=== PATIENT | female | born 1995 | race Two or more races ===

== ENCOUNTER 2020-10-19 23:06 | Emergency (ER) | payer MEDICAID ==
[2020-10-20] MEDS ORDERED: ACETAMINOPHEN 325 MG TABLET PO ONE (00:36)
--- NOTE | 2020-10-20 00:39 | ER Document Report ---
ED Medical Screen (RME) - General Chief Complaint: Abdominal Pain Stated Complaint: C SECTION POST OP COMPLICATIONS Time Seen by Provider: 10/20/20 00:31 Primary Care Provider: CHRISTA LEE MD [Primary Care Provider] - Follow up as needed Mode of Arrival: Ambulatory Information source: Patient Notes: HPI; 25-year-old female presents to the emergency room complaining of persistent pain to her scar from November 06, 2019. Patient states the pain is intermittent but has gotten progressively worse over the past week. States she squatted down to urinate when she felt a sharp pulling sensation to her lower abdomen. Denies nausea, vomiting, no fevers, no urinary symptoms. Been taking ibuprofen and Tylenol with minimal relief. States tonight she did notice some bruising to the area. PE: Alert and oriented x3. Lungs: Clear to auscultation without rales, rhonchi, wheezes. Heart: Regular rate rhythm without murmurs, rubs, gallops. Unable to do full abdominal exam in triage. I have greeted and performed a rapid initial assessment of this patient. A comprehensive ED assessment and evaluation of the patient, analysis of test results and completion of the medical decision making process will be conducted by additional ED providers. I have specifically instructed the patient or family members with the patient to immediately return to any nursing staff should anything change in the patient's condition or with their chief complaint. TRAVEL OUTSIDE OF THE [place] IN LAST 30 DAYS: No - Related Data Allergies/Adverse Reactions: Penicillins Allergy (Verified 10/20/20 00:36) Physical Exam - Vital signs Vitals: Temp Pulse Resp BP Pulse Ox 98.0 F 72 17 145/78 H 100 10/19/20 23:10 10/19/20 23:10 10/19/20 23:10 10/19/20 23:10 10/19/20 23:10 Course - Vital Signs Vital signs: Temp Pulse Resp BP Pulse Ox 98.0 F 72 17 145/78 H 100 10/19/20 23:10 10/19/20 23:10 10/19/20 23:10 10/19/20 23:10 10/19/20 23:10 Doctor's Discharge - Discharge Referrals: CHRISTA LEE MD [Primary Care Provider] - Follow up as needed
[2020-10-20 01:10] LABS: ABSOLUTE EOSINOPHILS # (AUTO) 0.2 10^3/uL (0.0-0.6); ABSOLUTE LYMPHOCYTES (AUTO) 2.8 10^3/uL (0.5-4.7); ABSOLUTE MONOCYTES (AUTO) 0.5 10^3/uL (0.1-1.4); ABSOLUTE NEUT (AUTO) 6.6 10^3/uL (1.7-8.2); BASOPHILS % (AUTO) 0.3 % (0-2); EOSINOPHILS % (AUTO) 1.7 % (0-6); HEMATOCRIT 34.3 % (36.0-47.0); HEMOGLOBIN 11.7 g/dL (12.0-15.5); LYMPHOCYTES % (AUTO) 27.5 % (13-45); MEAN CORPUSCULAR HEMOGLOBIN 29.2 pg (27.0-33.4); MEAN CORPUSCULAR HGB CONC 34.2 g/dL (32.0-36.0); MEAN CORPUSCULAR VOLUME 85 fl (80-97); MONOCYTES % (AUTO) 5.3 % (3-13); PLATELET COUNT 281 10^3/uL (150-450); RED BLOOD COUNT 4.02 10^6/uL (3.72-5.28); RED CELL DISTRIBUTION WIDTH 15.7 % (11.5-14.0); SEGMENTED NEUTROPHILS % (AUTO) 65.2 % (42-78); TOTAL CELLS COUNTED % (AUTO) 100 %; WHITE BLOOD COUNT 10.1 10^3/uL (4.0-10.5)
[2020-10-20 01:24] LABS: ALBUMIN 3.9 g/dL (3.5-5.0); ALKALINE PHOSPHATASE 79 U/L (38-126); ASPARTATE AMINO TRANSFERASE 22 U/L (14-36); BILIRUBIN,TOTAL 0.4 mg/dL (0.2-1.3); BLOOD UREA NITROGEN 12 mg/dL (7-20); GLUCOSE 90 mg/dL (75-110); POTASSIUM 4.1 mmol/L (3.6-5.0); TOTAL PROTEIN 6.9 g/dL (6.3-8.2)
[2020-10-20 01:29] LABS: CARBON DIOXIDE 29 mmol/L (22-30); CHLORIDE 105 mmol/L (98-107)
[2020-10-20 01:30] LABS: ANION GAP 4 (5-19)
[2020-10-20 04:37] LABS: APPEARANCE,URINE SLIGHTLY-CLOUDY; BILIRUBIN,URINE NEGATIVE (NEGATIVE); COLOR,URINE YELLOW; GLUCOSE, URINE NEGATIVE (NEGATIVE); KETONES,URINE NEGATIVE (NEGATIVE); LEUKOCYTE ESTERASE,URINE NEGATIVE (NEGATIVE); NITRITE,URINE NEGATIVE (NEGATIVE); PROTEIN,URINE 30 mg/dL (NEGATIVE); URINE SPECIFIC GRAVITY 1.039
[2020-10-20] MEDS ORDERED: HYDROCODONE/ACETAMINOPHEN 5-325 MG TABLET PO ONE (06:27)
[2020-10-20] MEDS ORDERED: ONDANSETRON 4 MG TAB.RAPDIS PO ONE (06:27)
--- NOTE | 2020-10-20 07:07 | RADIOLOGY REPORT (SQ) ---
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 COMPARISON: None available TECHNIQUE: Axial contiguous images were obtained from the lung bases to the proximal femurs with intravenous intravenous contrast administered. Sagittal and coronal reconstructions were also obtained and reviewed. This exam was performed according to our departmental dose-optimization program, which includes automated exposure control, adjustment of the mA and/or KV according to the patient's size and/or use of iterative reconstruction technique. FINDINGS: No focal consolidative airspace opacities are seen. No discrete pleural effusions are seen. The visualized hepatic parenchyma demonstrates no focal abnormality. The gallbladder demonstrates no evidence of calcified gallstones. The spleen is normal in size. The pancreas is unremarkable. The bilateral adrenal glands are unremarkable. Both kidneys demonstrate no evidence of hydronephrosis. No renal or ureteral calculi are seen. The urinary bladder is mildly distended. The uterus is present. There is a right adnexal hypodensity measuring at least 6.4 x 4.7 cm. This may represent a large physiologic cyst or hemorrhagic cyst, less likely infection. This could also less likely represent a hydrosalpinx. The stomach is mildly distended. The small bowel loops appear unremarkable. An anterior umbilical hernia containing omental fat is seen. No pericolonic inflammatory stranding is seen. The appendix is unremarkable. There is no evidence of pneumoperitoneum or free fluid. The IVC is unremarkable. The visualized portions of the abdominal aorta are within normal limits of size. No significantly enlarged lymph nodes are seen in the abdomen or pelvis. Review of the bone show no evidence of any suspicious lytic or blastic lesions. IMPRESSION: There is a right adnexal hypodensity measuring at least 6.4 x 4.7 cm. This may represent a large physiologic cyst or hemorrhagic cyst, less likely infection. This could also less likely represent a hydrosalpinx. This could be better evaluated with ultrasound imaging.
--- NOTE | 2020-10-20 07:10 | ER Document Report ---
ED General - General Chief Complaint: Abdominal Pain Stated Complaint: C SECTION POST OP COMPLICATIONS Time Seen by Provider: 10/20/20 00:31 Primary Care Provider: CHRISTA LEE MD [COMMUNITY BASED STAFF] - Follow up as needed Mode of Arrival: Ambulatory TRAVEL OUTSIDE OF THE [place] IN LAST 30 DAYS: No - Related Data Allergies/Adverse Reactions: Penicillins Allergy (Verified 10/20/20 00:36) Past Medical History - General Information source: Patient - Social History Smoking Status: Current Some Day Smoker Physical Exam - Vital signs Vitals: Temp Pulse Resp BP Pulse Ox 98.0 F 72 17 145/78 H 100 10/19/20 23:10 10/19/20 23:10 10/19/20 23:10 10/19/20 23:10 10/19/20 23:10 Course - Vital Signs Vital signs: Temp Pulse Resp BP Pulse Ox 98.0 F 72 17 145/78 H 100 10/19/20 23:10 10/19/20 23:10 10/19/20 23:10 10/19/20 23:10 10/19/20 23:10 - Laboratory Results Result Diagrams: 10/20/20 00:49 10/20/20 00:49 Laboratory Results Interpreted: 10/20/20 10/20/20 10/20/20 00:49 00:49 04:15 Hgb 11.7 L Hct 34.3 L RDW 15.7 H Anion Gap 4 L Urine Protein 30 H Urine Urobilinogen 2.0 H Discharge - Discharge Referrals: CHRISTA LEE MD [COMMUNITY BASED STAFF] - Follow up as needed
--- NOTE | 2020-10-20 07:16 | ER Document Report ---
ED General - General Mode of Arrival: Ambulatory Information source: Patient TRAVEL OUTSIDE OF THE [place] IN LAST 30 DAYS: No <YADIEL SPANN - Last Filed: 10/20/20 07:41> <MAGAN TURNER - Last Filed: 10/20/20 15:09> - General Chief Complaint: Abdominal Pain Stated Complaint: C SECTION POST OP COMPLICATIONS Time Seen by Provider: 10/20/20 00:31 Primary Care Provider: CHRISTA LEE MD [COMMUNITY BASED STAFF] - Follow up as needed MANOJ WREN MD [ACTIVE STAFF] - Follow up as needed Notes: Patient presents to the ER for evaluation of lower abdominal pain that has been intermittent and progressively worsening over the last several weeks. She denies fever. She denies nausea or vomiting. She denies diarrhea. She denies dysuria. The patient states the pain feels as though it runs along an old C- section scar that is greater than 1-year-old. Nursing notes reviewed and past medical, social, and family histories reviewed and validated. (YADIEL SPANN) - Related Data Allergies/Adverse Reactions: Penicillins Allergy (Verified 10/20/20 00:36) Past Medical History - General Information source: Patient - Social History Smoking Status: Current Some Day Smoker Cigarette use (# per day): Yes - Half pack per day Chew tobacco use (# tins/day): No Smoking Education Provided: Yes Frequency of alcohol use: None Drug Abuse: None Lives with: Family Family History: None Patient has suicidal ideation: No Patient has homicidal ideation: No - Past Medical History Cardiac Medical History: Reports: None Pulmonary Medical History: Reports: None EENT Medical History: Reports: None Neurological Medical History: Reports: None Endocrine Medical History: Reports: None Renal/ Medical History: Reports: None Malignancy Medical History: Reports: None GI Medical History: Reports: None Musculoskeletal Medical History: Reports None Skin Medical History: Reports None Psychiatric Medical History: Reports: None Traumatic Medical History: Reports: None Infectious Medical History: Reports: None Past Surgical History: Reports: Hx Section - Immunizations Immunizations up to date: Yes <YADIEL SPANN - Last Filed: 10/20/20 07:41> Review of Systems <YADIEL SPANN - Last Filed: 10/20/20 07:41> - Review of Systems Notes: Constitutional: Negative for fever. HENT: Negative for sore throat. Eyes: Negative for visual changes. Cardiovascular: Negative for chest pain. Respiratory: Negative for shortness of breath. Gastrointestinal: Positive for abdominal pain. Negative for vomiting or diarrh ea. Genitourinary: Negative for dysuria. Musculoskeletal: Negative for back pain. Skin: Negative for rash. Neurological: Negative for headaches, weakness or numbness. 10 point ROS negative except as marked above and in HPI. (YADIEL SPANN) Physical Exam <YADIEL SPANN - Last Filed: 10/20/20 07:41> - Vital signs Vitals: Temp Pulse Resp BP Pulse Ox 98.0 F 72 17 145/78 H 100 10/19/20 23:10 10/19/20 23:10 10/19/20 23:10 10/19/20 23:10 10/19/20 23:10 - Notes Notes: CONSTITUTIONAL: Well appearing. No acute distress. SKIN: Warm, dry, and intact without rash EYES: Extraocular movements are grossly intact, clear conjunctiva HENT: Normocephalic, atraumatic, moist mucus membranes NECK: No obvious swelling, normal range of motion PULMONARY: Normal chest rise and fall. Breath sounds clear and equal bilaterally. No respiratory distress or stridor CARDIOVASCULAR: Regular rate. No murmurs, rubs, gallops. Distal extremities are warm and well perfused. ABDOMINAL: The abdomen is soft. There is no significant erythema noted. There is no induration noted. There is tenderness palpation in the lower abdomen bilaterally. NEUROLOGIC: Normal speech, moves all extremities. MUSCULOSKELETAL: No gross deformities, atraumatic PSYCHIATRIC: Normal mood and affect (YADIEL SPANN) Course - Laboratory Results Result Diagrams: 10/20/20 00:49 10/20/20 00:49 - Transfer of Care Care transferred to following provider: MISTI Reyes <YADIEL SPANN - Last Filed: 10/20/20 07:41> - Laboratory Results Result Diagrams: 10/20/20 00:49 10/20/20 00:49 Critical Laboratory Results Reviewed: No Critical Results - Radiology Results Critical Radiology Results Reviewed: No Critical Results <MAGAN TURNER - Last Filed: 10/20/20 15:09> - Re-evaluation Re-evalutation: 10/20/20 09:59 I assumed care from nighttime LABORATORY HELPER Magan Rollins who informed the patient is coming with abdominal pain and discomfort increased over the past couple weeks. Labs came back normal with exception of a hemoglobin of 11.7 hematocrit of 34.3. Urine was normal non. Patient's CT report came back with the reading this of the uterus was present there is a large right adnexal hypodensity measuring at least 6.4 x 4.7cm and stated that may represent a large physiological cyst or hemorrhagic cyst but suggested an ultrasound. This is where he had ordered this prior to me coming on this morning I had not been performed as the time of shift change and we are waiting on the ultrasound report. Ultrasound report comes back showing that there is complex hypoechoic lesion measuring 4.3 x 3.6 x 4.3 cm without any evidence of torsion. Most likely hemorrhagic cyst. Given these findings and the large size of the hemorrhagic cyst I contact the WHEEL PRESS CLERK on-call Dr. Aldo Wren discussed the case with him and since patient's pain is controlled she can be discharged home and follow-up with them sometime this week. 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 I will write p atient for some ibuprofen as well as a little opiate pain medication for any breakthrough pain. And she will contact his office for follow-up sometime this week. (MAGAN TURNER) - Vital Signs Vital signs: Temp Pulse Resp BP Pulse Ox 98.1 F 67 17 130/67 H 100 10/20/20 10:20 10/20/20 10:20 10/19/20 23:10 10/20/20 10:20 10/20/20 10:20 - Laboratory Results Laboratory Results Interpreted: 10/20/20 10/20/20 10/20/20 00:49 00:49 04:15 Hgb 11.7 L Hct 34.3 L RDW 15.7 H Anion Gap 4 L Urine Protein 30 H Urine Urobilinogen 2.0 H - Transfer of Care Notes: 10/20/20 08:00 Report signed out to oncoming provider, MISTI Reyes. Electronically signed: EULALIA Meraz- (YADIEL SPANN) Discharge <YADIEL SPANN - Last Filed: 10/20/20 07:41> <MAGAN TURNER - Last Filed: 10/20/20 15:09> - Discharge Clinical Impression: Lower abdominal pain Ovarian cyst Qualifiers: Laterality: left Qualified Code(s): N83.202 - Unspecified ovarian cyst, left side Condition: Stable Disposition: HOME, SELF-CARE Instructions: Abdominal Pain ([facility]), Ovarian Cyst ([facility]) Additional Instructions: As we discussed your ultrasound shows you have an ovarian cyst most likely hemorrhagic in nature. I have discussed it with Dr. Aldo Wren who states that you can follow-up with him this week as long as her pain level is tolerable. Since her pain level is currently under control we can discharge her home. Highly recommend that she follow-up with him sometime this week. Should you have increasing pain or discomfort you spike a fever or have any other concerns you can return to ER for reevaluation. Prescriptions: Ibuprofen [Ibu] 600 mg PO TID PRN #21 tablet PRN Reason: Oxycodone HCl/Acetaminophen [Percocet 5-325 mg Tablet] 1 tab PO Q6 #10 tablet Forms: Smoking Cessation Education, Return to Work Referrals: CHRISTA LEE MD [COMMUNITY BASED STAFF] - Follow up as needed MANOJ WREN MD [ACTIVE STAFF] - Follow up as needed
--- NOTE | 2020-10-20 08:41 | RADIOLOGY REPORT (SQ) ---
EXAM DESCRIPTION: U/S NON OB PEL W/DOPPLER IMAGES COMPLETED DATE/TIME: 10/20/2020 8:11 am REASON FOR STUDY: lower abd pain, abnormal right ovary on ct scan COMPARISON: None. TECHNIQUE: Dynamic and static grayscale images acquired of the pelvis via transabdominal approach an d recorded on PACS. Additional selected color Doppler and spectral images recorded. LIMITATIONS: None. FINDINGS: UTERUS: Unremarkable in size and contour measuring 6.8 x 4.4 x 3.9 cm. ENDOMETRIAL STRIPE: Endometrial stripe is visualized measuring 7 mm. No focal thickening. CERVIX: No nabothian cysts. RIGHT OVARY AND DOPPLER: Enlargedsize measuring 6.7 x 4.6 x 4.9 cm. There is a complex hypoechoic ec hogenic lesion measuring 4.3 x 3.6 x 4.3 cm. Normal arterial vascular flow without evidence for tors ion. LEFT OVARY AND DOPPLER: Ovaries nonvisualized. FREE FLUID: None noted. OTHER: No other significant finding. IMPRESSION: 1. Unremarkable appearance of the uterus. 2. Complex hypoechoic left ovarian lesion measuring up to 6.7 cm, likely hemorrhagic cyst. Recommen d 2-6 mild follow-up ultrasound to ensure resolution. 3. Left ovary is nonvisualized. TECHNICAL DOCUMENTATION: JOB ID: [id number] 2010 [employer]- All Rights Reserved Rev-03/10 Reading location - IP/workstation name: [email or web address]
[2020-10-20] MEDS ORDERED: KETOROLAC TROMETHAMINE INJ/PF 30 MG/1 ML SDV IV ONE (09:11)
[2020-10-20 10:37] VITALS: BP 130/67
== END 2020-10-20 10:38 | disposition home or self-care (01) ==
LOC: ER 23:06
DX: N83.202 Unspecified ovarian cyst, left side (principal); R10.30 Lower abdominal pain, unspecified; F17.210 Nicotine dependence, cigarettes, uncomplicated; Z88.0 Allergy status to penicillin
CPT/HCPCS: 99285; 96374; 36415; 84703; 85025; 80053; 81001; 76856; 93976; 74177; J3490; S0119; J1885

== ENCOUNTER 2020-10-23 13:49 | Emergency (ER) | payer MEDICAID ==
--- NOTE | 2020-10-23 14:15 | ER Document Report ---
ED Medical Screen (RME) - General Chief Complaint: Vaginal Bleeding Stated Complaint: VAGINAL BLEEDING Time Seen by Provider: 10/23/20 14:09 Notes: Patient presents complaining of right lower pelvic pain with vaginal bleeding. Patient states the bleeding started yesterday and is a light spotting. Patient denies any lightheadedness or dizziness. Patient states she was diagnosed with a hemorrhagic cyst 5 days ago. Patient has a pending follow-up appointment with tubular splitting machine tender next week. I have greeted and performed a rapid initial assessment of this patient. A comprehensive ED assessment and evaluation of the patient, analysis of test results and completion of the medical decision making process will be conducted by additional ED providers. TRAVEL OUTSIDE OF THE [place] IN LAST 30 DAYS: No - Related Data Allergies/Adverse Reactions: Penicillins Allergy (Verified 10/20/20 00:36) Past Medical History Past Surgical History: Reports: Hx Section - Immunizations Immunizations up to date: Yes Physical Exam - Abdominal Tenderness: Tender - Right lower pelvic, exam limited as patient is standing in triage
[2020-10-23 15:12] LABS: ABSOLUTE EOSINOPHILS # (AUTO) 0.1 10^3/uL (0.0-0.6); ABSOLUTE LYMPHOCYTES (AUTO) 1.6 10^3/uL (0.5-4.7); ABSOLUTE MONOCYTES (AUTO) 0.3 10^3/uL (0.1-1.4); ABSOLUTE NEUT (AUTO) 5.1 10^3/uL (1.7-8.2); BASOPHILS % (AUTO) 0.4 % (0-2); HEMATOCRIT 38.8 % (36.0-47.0); LYMPHOCYTES % (AUTO) 22.5 % (13-45); MEAN CORPUSCULAR HEMOGLOBIN 28.6 pg (27.0-33.4); MEAN CORPUSCULAR HGB CONC 33.4 g/dL (32.0-36.0); MEAN CORPUSCULAR VOLUME 86 fl (80-97); MONOCYTES % (AUTO) 4.1 % (3-13); PLATELET COUNT 282 10^3/uL (150-450); RED BLOOD COUNT 4.53 10^6/uL (3.72-5.28); RED CELL DISTRIBUTION WIDTH 15.8 % (11.5-14.0); TOTAL CELLS COUNTED % (AUTO) 100 %
[2020-10-23 15:15] LABS: COLOR,URINE COLORLESS
[2020-10-23 15:16] LABS: APPEARANCE,URINE CLEAR; BILIRUBIN,URINE NEGATIVE (NEGATIVE); GLUCOSE, URINE NEGATIVE (NEGATIVE); KETONES,URINE NEGATIVE (NEGATIVE); LEUKOCYTE ESTERASE,URINE NEGATIVE (NEGATIVE); NITRITE,URINE NEGATIVE (NEGATIVE); PROTEIN,URINE 30 mg/dL (NEGATIVE); URINE SPECIFIC GRAVITY 1.033; UROBILINOGEN,URINE NEGATIVE mg/dL (<2.0)
--- NOTE | 2020-10-23 15:23 | RADIOLOGY REPORT (SQ) ---
EXAM DESCRIPTION: U/S NON OB PEL TV W/DOPPLER IMAGES COMPLETED DATE/TIME: 10/23/2020 3:10 pm REASON FOR STUDY: R lower pelvic pain, vag bleeding COMPARISON: 10/20/2020 TECHNIQUE: Dynamic and static grayscale images acquired of the pelvis via transvaginal approach and recorded on PACS. Additional selected color Doppler and spectral images recorded. LIMITATIONS: None. FINDINGS: UTERUS: Contour normal. No mass. ENDOMETRIAL STRIPE: No focal or generalized thickening. No masses. CERVIX: No nabothian cysts. RIGHT OVARY AND DOPPLER: Mildly enlarged compared to the left. No mass identified. Normal arterial vascular flow without evidence for torsion. LEFT OVARY AND DOPPLER: Normal size. No worrisome masses. Normal arterial vascular flow without evide nce for torsion. FREE FLUID: Small amount of free fluid adjacent to the right ovary. OTHER: No other significant finding. MEASUREMENTS: UTERUS: 6.5 x 5.7 x 5.4 cm ENDOMETRIAL STRIPE: 11 mm RIGHT OVARY: 5.8 x 5.0 x 4.0 cm LEFT OVARY: 2.3 x 2.1 x 1.9 cm IMPRESSION: Resolving hemorrhagic cyst right ovary. TECHNICAL DOCUMENTATION: JOB ID: [id number] [employer]- All Rights Reserved Rev-03/10 Reading location - IP/workstation name: [email or web address]
[2020-10-23 15:26] LABS: ANION GAP 7 (5-19); BLOOD UREA NITROGEN 16 mg/dL (7-20); CALCIUM 9.4 mg/dL (8.4-10.2); CARBON DIOXIDE 29 mmol/L (22-30); CHLORIDE 104 mmol/L (98-107); GLUCOSE 102 mg/dL (75-110); POTASSIUM 3.6 mmol/L (3.6-5.0)
--- NOTE | 2020-10-23 18:37 | ER Document Report ---
ED General - General Chief Complaint: Vaginal Bleeding Stated Complaint: VAGINAL BLEEDING Time Seen by Provider: 10/23/20 14:09 TRAVEL OUTSIDE OF THE [place] IN LAST 30 DAYS: No - HPI Notes: Patient is a 25-year-old female who presents emergency department for evaluation. She was seen here on the for pelvic pain. She was diagnosed with a hemorrhagic ovarian cyst. She also has chronic pain. She states that she was told that if she developed vaginal bleeding she should report back to the emergency department. Her pain is minimal. She said no fevers or chills. No nausea or vomiting. She is eating and drinking normally. Normal bowel movements. She currently puts her pain at a 1-2 out of 5. It has been helped with [id number] anti-inflammatories. She states that she has had vaginal bleeding that has required 2 menstrual pads today. Her last menstrual period was at the beginning of September, or approximately 4 weeks ago. - Related Data Allergies/Adverse Reactions: Penicillins Allergy (Verified 10/20/20 00:36) Past Medical History - General Information source: Patient - Social History Smoking Status: Current Every Day Smoker Chew tobacco use (# tins/day): No Frequency of alcohol use: Occasional Drug Abuse: None Family History: None Renal/ Medical History: Reports: Hx Ovarian Cysts Psychiatric Medical History: Reports: Hx Anxiety, Hx Depression Past Surgical History: Reports: Hx Section - Immunizations Immunizations up to date: Yes Review of Systems - Review of Systems Constitutional: No symptoms reported EENT: No symptoms reported Cardiovascular: No symptoms reported Respiratory: No symptoms reported Gastrointestinal: No symptoms reported Genitourinary: No symptoms reported Female Genitourinary: See HPI Musculoskeletal: No symptoms reported Skin: No symptoms reported Neurological/Psychological: No symptoms reported Physical Exam - Vital signs Vitals: Temp 98.9 F 10/23/20 14:11 - Notes Notes: Vital signs reviewed, please refer to chart. Head is normocephalic, atraumatic. Pupils equal round, reactive to light. Neck is supple without meningismus. Heart is regular rate and rhythm. Lungs are clear to auscultation bilaterally. Abdomen is soft, nontender, normoactive bowel sounds throughout. Extremities without cyanosis, clubbing. Posterior calves are nontender. Peripheral pulses are equal. Skin is warm and dry. Patient is awake, alert, neurological exam is nonfocal. Course - Re-evaluation Re-evalutation: 10/23/20 18:35 Patient presents emergency department for evaluation of vaginal bleeding. I suspect this is her normal menstruation. She had a hemorrhagic cyst seen 2 days ago which seems to be resolving. Her hemoglobin is higher. Her pain is minimal. She is told to take ibuprofen, moist heat to the area, follow-up closely with MECHANICAL ESTIMATOR. She voiced understanding. She is to return to the ED with worsening or new concerning symptoms of any sort. - Vital Signs Vital signs: Temp Pulse Resp BP Pulse Ox 98.9 F 76 16 114/62 98 10/23/20 14:15 10/23/20 14:15 10/23/20 14:15 10/23/20 14:15 10/23/20 14:15 - Laboratory Results Result Diagrams: 10/23/20 14:40 10/23/20 14:40 Laboratory Results Interpreted: 10/23/20 10/23/20 14:40 14:40 RDW 15.8 H Urine Protein 30 H Critical Laboratory Results Reviewed: No Critical Results - Radiology Results Radiology Results Interpreted: 10/23/20 18:36 Transvaginal US 10/23/20 14:14 IMPRESSION: Resolving hemorrhagic cyst right ovary. Critical Radiology Results Reviewed: No Critical Results Discharge - Discharge Clinical Impression: Vaginal bleeding, Hemorrhagic ovarian cyst Condition: Stable Disposition: HOME, SELF-CARE Instructions: Ovarian Cyst ([facility]) Additional Instructions: Your ovarian cyst seems to be resolving. It is likely that the vaginal bleeding you are experiencing is your normal menstruation. Will closely with MECHANICAL ESTIMATOR next week. Return to the emergency department with worsening or new concerning symptoms of any sort.
[2020-10-23 18:56] VITALS: BP 122/77
== END 2020-10-23 18:55 | disposition home or self-care (01) ==
LOC: ER 13:49
DX: N93.9 Abnormal uterine and vaginal bleeding, unspecified (principal); N83.201 Unspecified ovarian cyst, right side; G89.29 Other chronic pain; F17.200 Nicotine dependence, unspecified, uncomplicated; Z88.0 Allergy status to penicillin
CPT/HCPCS: 36415; 76830; 80048; 81001; 84703; 85025; 93976; 99284